=== PATIENT | female | born 1935 | race Caucasian/White ===

== ENCOUNTER 2023-02-24 11:25 | Emergency (ER) | payer MEDICARE, OTHER ==
[~2023-02-24 11:25] MED LIST: Iopamidol 370 76% 50 ML VIAL FS ONE
[2023-02-24 13:28] LABS: ALT (SGPT) 11 U/L (8-55); AST (SGOT) 22 U/L (5-34); Albumin 4.7 g/dL (3.4-4.8); Alkaline Phosphatase 92 U/L (40-110); Anion Gap 19 mmol/L (10-20); BUN (Urea Nitrogen) 19 mg/dL (9.8-20.1); Bilirubin, Total 0.8 mg/dL (0.2-1.2); Calc. Creatinine Clearance 0 mL/min (70-130); Calcium 9.4 mg/dL (7.8-10.44); Carbon Dioxide 25 mmol/L (23-31); Chloride 103 mmol/L (98-107); Estimated GFR 41; Globulin 3.7 g/dL (2.4-3.5); Glucose 99 mg/dL (83-110); Potassium 4.4 mmol/L (3.5-5.1); Protein, Total 8.4 g/dL (5.8-8.1); Sodium 143 mmol/L (136-145)
[2023-02-24 14:50] LABS: #Basophils 0.1 10x3/uL (0.0-0.2); #Eosinphils 0.1 10x3/uL (0.0-0.5); #Monocytes 0.7 10x3/uL (0.0-1.1); #Neutrophils 5.8 10x3/uL (1.5-8.4); %Eosinophils 0.9 % (0.0-6.0); %Lymphocytes 23.4 % (18.0-47.0); %Monocytes 7.6 % (0.0-10.0); %Neutrophils 66.9 % (40.0-75.0); Hemoglobin 13.9 g/dL (12.0-15.5); Mean Corpuscular HGB CONC 32.3 g/dL (32.0-36.0); Mean Corpuscular Volume 92.9 fl (81.6-98.3); Mean Platelet Volume 11.3 fl (7.4-10.4); Platelet Count 200 10x3/uL (150-450); RBC Distribution Width 13.9 % (11.5-14.5); Red Blood Cell (RBC) Count 4.64 10x6/uL (3.90-5.03); White Blood Cell (WBC) Count 8.7 10x3/uL (3.5-10.5)
[2023-02-24 15:17] LABS: Bilirubin Neg (Negative); Blood, Urine 250 (Negative); Clarity Slightly Cloudy (Clear); Glucose, Urine (Dipstick) Normal (Negative); Ketone, Urine 15 mg/dL (Negative); Leukocyte 25 (Negative); Nitrite Negative (Negative); Protein, Urine (Dipstick) 15 mg/dl (Neg-Trace); Specific Gravity, Urine 1.015 (1.005-1.030); Urobilinogen Normal mg/dL (Less than 2)
[2023-02-24 15:33] LABS: Bacteria/HPF 4+ HPF (None Seen); CAUTI Indications for Culture Pelvic or flank pain; RBC/HPF 21-50 HPF (0-3); Squamous Epithelial 0-3 HPF (0-3)
[2023-02-24 15:34] LABS: Urine Culture Reflex No No
== END 2023-02-24 15:35 | disposition home or self-care (01) ==
LOC: CSHERS 11:25
DX: K44.9 Diaphragmatic hernia without obstruction or gangrene (principal); K21.9 Gastro-esophageal reflux disease without esophagitis
CPT/HCPCS: 36415; 51701; 71045; 74177; 80053; 81001; 84484; 85025; 93005; Q9967

== ENCOUNTER 2023-02-27 09:57 | Inpatient (IN) | payer MEDICARE, OTHER ==
[~2023-02-27 09:57] MED LIST changes: +Iopamidol 300 61% 100 ML VIAL FS ONE; -Iopamidol 370 76% 50 ML VIAL FS ONE
[2023-02-27 11:14] LABS: #Basophils 0.1 10x3/uL (0.0-0.2); #Eosinphils 0.1 10x3/uL (0.0-0.5); #Monocytes 0.6 10x3/uL (0.0-1.1); #Neutrophils 8.3 10x3/uL (1.5-8.4); %Basophils 0.9 % (0.0-2.0); %Eosinophils 0.8 % (0.0-6.0); %Lymphocytes 13.8 % (18.0-47.0); %Monocytes 6.1 % (0.0-10.0); %Neutrophils 78.1 % (40.0-75.0); Hematocrit 46.6 % (34.9-44.5); Hemoglobin 14.9 g/dL (12.0-15.5); Mean Corpuscular Hemoglobin 29.5 pg (27.0-33.0); Mean Corpuscular Volume 92.3 fl (81.6-98.3); Platelet Count 211 10x3/uL (150-450); Red Blood Cell (RBC) Count 5.05 10x6/uL (3.90-5.03); White Blood Cell (WBC) Count 10.5 10x3/uL (3.5-10.5)
[2023-02-27 11:24] LABS: ALT (SGPT) 14 U/L (8-55); AST (SGOT) 23 U/L (5-34); Albumin 4.7 g/dL (3.4-4.8); Alkaline Phosphatase 94 U/L (40-110); Anion Gap 19 mmol/L (10-20); BUN (Urea Nitrogen) 29 mg/dL (9.8-20.1); Bilirubin, Total 0.9 mg/dL (0.2-1.2); Calc. Creatinine Clearance 0 mL/min (70-130); Calcium 9.7 mg/dL (7.8-10.44); Carbon Dioxide 27 mmol/L (23-31); Chloride 98 mmol/L (98-107); Estimated GFR 40; Globulin 3.5 g/dL (2.4-3.5); Glucose 101 mg/dL (83-110); Potassium 4.2 mmol/L (3.5-5.1); Protein, Total 8.2 g/dL (5.8-8.1); Sodium 140 mmol/L (136-145)
[2023-02-27 12:28] LABS: Bilirubin Neg (Negative); Blood, Urine 10 (Negative); Clarity Clear (Clear); Glucose, Urine (Dipstick) Normal (Negative); Ketone, Urine Negative (Negative); Leukocyte 500 (Negative); Nitrite Negative (Negative); Protein, Urine (Dipstick) Negative (Neg-Trace); Urobilinogen Normal mg/dL (Less than 2)
[2023-02-27 12:41] LABS: Bacteria/HPF 2+ HPF (None Seen); CAUTI Indications for Culture Alt mental st,lethar; RBC/HPF 0-3 HPF (0-3); Squamous Epithelial 0-3 HPF (0-3)
[2023-02-27 12:42] LABS: Urine Culture Reflex Yes Yes
[2023-02-27] MEDS ORDERED: cefTRIAXone (ROCEPHIN) 1 GM VIAL ONE (13:20)
[2023-02-27] MEDS ORDERED: Ondansetron PF 4 MG/2 ML Vial IVP PRN (15:18)
[2023-02-27] MEDS ORDERED: Docusate 100 MG CAP PO PRN (15:18)
[2023-02-27] MEDS ORDERED: Acetaminophen 650 MG Suppository PR PRN (15:18)
[2023-02-27] MEDS ORDERED: Ondansetron ODT 4 MG TAB PO PRN (15:18)
[2023-02-27] MEDS ORDERED: Acetaminophen 325 MG TAB PO PRN (15:18)
[2023-02-27] MEDS ORDERED: Bisacodyl 10 MG SUPP PR PRN (15:18)
[2023-02-27] MEDS ORDERED: Electrolyte Replacement Protocol 1 EACH FS SCH (15:30)
[2023-02-27] MEDS ORDERED: Sodium Chloride 0.9% 1,000 ML IV SCH (15:30)
[2023-02-27] MEDS ORDERED: Polyethylene Glycol 3350 17 GM Packet PO SCH (18:00)
[2023-02-27 20:38] VITALS: BMI 23.6
[2023-02-27] MEDS: Donepezil HCl 5 MG TAB PO SCH (20:56)
[2023-02-27 22:49] LABS: SARS-CoV-2 NAA Rapid Test Not Detected (NotDetected)
[2023-02-28 04:51] LABS: #Basophils 0.1 10x3/uL (0.0-0.2); #Eosinphils 0.2 10x3/uL (0.0-0.5); #Monocytes 0.6 10x3/uL (0.0-1.1); #Neutrophils 6.1 10x3/uL (1.5-8.4); %Eosinophils 2.2 % (0.0-6.0); %Lymphocytes 19.7 % (18.0-47.0); %Monocytes 6.6 % (0.0-10.0); Hematocrit 38.1 % (34.9-44.5); Hemoglobin 12.2 g/dL (12.0-15.5); Mean Corpuscular Hemoglobin 29.8 pg (27.0-33.0); Mean Corpuscular Volume 93.2 fl (81.6-98.3); Mean Platelet Volume 11.6 fl (7.4-10.4); Platelet Count 182 10x3/uL (150-450); RBC Distribution Width 13.8 % (11.5-14.5); Red Blood Cell (RBC) Count 4.09 10x6/uL (3.90-5.03); White Blood Cell (WBC) Count 8.7 10x3/uL (3.5-10.5)
[2023-02-28 05:13] LABS: Anion Gap 14 mmol/L (10-20); BUN (Urea Nitrogen) 24 mg/dL (9.8-20.1); Calc. Creatinine Clearance 43 mL/min (70-130); Calcium 8.1 mg/dL (7.8-10.44); Carbon Dioxide 25 mmol/L (23-31); Chloride 104 mmol/L (98-107); Estimated GFR 64; Glucose 94 mg/dL (83-110); Potassium 3.6 mmol/L (3.5-5.1); Sodium 139 mmol/L (136-145)
[2023-02-28] MEDS: Sertraline 25 MG TAB PO SCH (09:16)
[2023-02-28] MEDS: Aspirin 81 mg Enteric Coated Tablet PO SCH (09:16)
[2023-02-28] MEDS: Polyethylene Glycol 3350 17 GM Packet PO SCH (09:16)
[2023-02-28] MEDS ORDERED: cefTRIAXone\\ROCEPHIN 1 GM in Sodium Chloride 0.9% 100 ML IVPB SCH (12:00)
[2023-02-28] MEDS ORDERED: Senokot S 8.6-50 MG TAB PO SCH (21:00)
[2023-02-28] MEDS: Donepezil HCl 5 MG TAB PO SCH (21:50)
[2023-03-01] MEDS ORDERED: Senokot S 8.6-50 MG TAB PO SCH (09:00)
[2023-03-01 09:08] VITALS: TEMP 98.7
[2023-03-01] MEDS ORDERED: cefTRIAXone\\ROCEPHIN 1 GM in Sodium Chloride 0.9% 100 ML IVPB SCH (10:00)
[2023-03-01] MEDS: Sertraline 25 MG TAB PO SCH (11:58)
[2023-03-01] MEDS: Polyethylene Glycol 3350 17 GM Packet PO SCH (11:58)
[2023-03-01] MEDS: Aspirin 81 mg Enteric Coated Tablet PO SCH (11:58)
[2023-03-01 12:35] VITALS: BP 132/60
== END 2023-03-01 16:30 | disposition home health service (06) | DRG 690 ==
LOC: CSHERS 09:57 → CSHERHOLD 15:18 → CSHTELE 19:54
PROVIDERS: ADMIT Hospitalist; ATTEND Internal Medicine
DX: N30.90 Cystitis, unspecified without hematuria (principal); N17.9 Acute kidney failure, unspecified; F03.90 Unspecified dementia, unspecified severity, without behavioral disturbance, psychotic disturbance, mood disturbance, and anxiety; K21.9 Gastro-esophageal reflux disease without esophagitis; R53.1 Weakness; I73.9 Peripheral vascular disease, unspecified; Z96.642 Presence of left artificial hip joint; K76.89 Other specified diseases of liver; N28.1 Cyst of kidney, acquired; K57.30 Diverticulosis of large intestine without perforation or abscess without bleeding; N18.2 Chronic kidney disease, stage 2 (mild); E86.0 Dehydration; Z20.822 Contact with and (suspected) exposure to COVID-19; Z90.710 Acquired absence of both cervix and uterus; Z88.2 Allergy status to sulfonamides; Z88.8 Allergy status to other drugs, medicaments and biological substances; Z79.82 Long term (current) use of aspirin; Z79.899 Other long term (current) drug therapy; Z98.890 Other specified postprocedural states; Z90.49 Acquired absence of other specified parts of digestive tract; K44.9 Diaphragmatic hernia without obstruction or gangrene
CPT/HCPCS: 36415; 36416; 51701; 71045; 74177; 80048; 80053; 81001; 83605; 84484; 85025; 87040; 87077; 87086; 87186; 93005; 94760; J0696; J1650; J2405; J3490; J7050; Q9967; U0002

== ENCOUNTER 2023-12-11 10:45 | Emergency (ER) | payer MEDICARE | END 2023-12-11 13:00 | disposition home or self-care (01) | LOC: CSHERS 10:45 | DX: S33.8XXA Sprain of other parts of lumbar spine and pelvis, initial encounter (principal); K21.9 Gastro-esophageal reflux disease without esophagitis; Z79.899 Other long term (current) drug therapy; W19.XXXA Unspecified fall, initial encounter | CPT/HCPCS: 70450; 72170; 72220 ==

== ENCOUNTER 2024-01-02 07:59 | Emergency (ER) | payer MEDICARE | END 2024-01-02 10:40 | disposition home or self-care (01) | LOC: CSHERS 07:59 | DX: S51.811A Laceration without foreign body of right forearm, initial encounter (principal); S00.93XA Contusion of unspecified part of head, initial encounter; W18.30XA Fall on same level, unspecified, initial encounter | CPT/HCPCS: 70450; 72125; 93005 ==

== ENCOUNTER 2024-01-08 10:46 | Emergency (ER) | payer MEDICARE, OTHER ==
[2024-01-08] MEDS ORDERED: Lidocaine 1% w/Epinephrine 1:200K 30 ML VIAL ONE (11:54)
[2024-01-08] MEDS ORDERED: Bacitracin 1 PK ONE (12:57)
== END 2024-01-08 13:08 | disposition home or self-care (01) ==
LOC: CSHERS 10:46
DX: S81.812A Laceration without foreign body, left lower leg, initial encounter (principal); Z55.6 Problems related to health literacy; W01.10XA Fall on same level from slipping, tripping and stumbling with subsequent striking against unspecified object, initial encounter
CPT/HCPCS: 12004; 99282